=== PATIENT | female | born 1990 | race Hispanic/Latino ===

== ENCOUNTER 2019-11-13 20:39 | Emergency (ER) | payer MEDICAID ==
[2019-11-13 21:31] VITALS: BP 123/75
--- NOTE | 2019-11-13 21:53 | Emergency Department Report ---
Blank Doc - Documentation Documentation: 29-year-old female that presents with abdominal pain. This initial assessment/diagnostic orders/clinical plan/treatment(s) is/are subject to change based on patient's health status, clinical progression and re- assessment by fellow clinical providers in the ED. Further treatment and workup at subsequent clinical providers discretion. Patient/guardians urged not to elope from the ED as their condition may be serious if not clinically assessed and managed. Initial orders include: 1- Patient sent to [facility] for further evaluation and treatment 2- labs 3- UA
[2019-11-13 22:24] LABS: Basophils # (Auto) 0.1 K/mm3 (0.0-0.1); Basophils % (Auto) 1.3 % (0.0-1.8); Eosinophils # (Auto) 0.2 K/mm3 (0.0-0.4); Eosinophils % (Auto) 3.1 % (0.0-4.3); Hematocrit 39.3 % (30.3-42.9); Lymphocytes # (Auto) 2.3 K/mm3 (1.2-5.4); Lymphocytes % (Auto) 34.2 % (13.4-35.0); Mean Corpuscular HGB Conc 33 % (30-34); Mean Corpuscular Volume 93 fl (79-97); Monocytes # (Auto) 0.5 K/mm3 (0.0-0.8); Monocytes % (Auto) 7.3 % (0.0-7.3); Platelet Count 301 K/mm3 (140-440); Red Blood Count 4.21 M/mm3 (3.65-5.03); Red Cell Distribution Width 13.4 % (13.2-15.2)
[2019-11-13 22:43] LABS: Alanine Aminotransferase 23 units/L (7-56); Albumin 4.2 g/dL (3.9-5); BUN/Creatinine Ratio 15; Blood Urea Nitrogen 16 mg/dL (7-17); Calcium 9.2 mg/dL (8.4-10.2); Hemolysis Index 10
[2019-11-13 23:00] LABS: Bilirubin,Urine NEG (Negative); Blood,Urine SM (Negative); Color,Urine Yellow (Yellow); Mucus,Urine FEW /HPF; Protein,Urine <15 mg/dL mg/dL (Negative); Urobilinogen,Urine < 2.0 mg/dL (<2.0)
== END 2019-11-13 23:00 | disposition left against medical advice (07) ==
LOC: ED 20:39
DX: R30.0 Dysuria (principal); R10.9 Unspecified abdominal pain; Z53.21 Procedure and treatment not carried out due to patient leaving prior to being seen by health care provider
CPT/HCPCS: 36415; 80053; 81001; 83690; 84703; 85025

== ENCOUNTER 2020-02-14 09:51 | Emergency (ER) | payer MEDICAID ==
[2020-02-14 10:02] VITALS: BP 124/83
[2020-02-14] MEDS ORDERED: ONDANSETRON 4 MG ODT TAB PO ONE (10:27)
--- NOTE | 2020-02-14 10:43 | Emergency Department Report ---
ED Abdominal Pain HPI - General Chief Complaint: Abdominal Pain Stated Complaint: ABD PAIN Time Seen by Provider: 02/14/20 10:26 Source: patient, EMS Mode of arrival: Ambulatory Limitations: No Limitations - History of Present Illness Initial Comments: Patient is a 29-year-old female presents emergency room with complaints of generalized abdominal pain for a week. She has associated nausea. She states that she had 2 episodes of vomiting yesterday but that has since resolved. She is able to tolerate p.o. intake. She states that she also has psoriasis. She denies any diarrhea, urinary symptoms, hematochezia, hematemesis, melena. She does not report any vaginal discharge or irritation. She denies any past medical history or allergies to medications. She states her last menstrual cycle was a week ago. Severity scale (0 -10): 5 - Related Data Previous Rx's Medication Instructions Recorded Last Taken Type Cyclobenzaprine [Flexeril] 10 mg PO BID PRN #20 tablet 07/31/18 Unknown Rx Naproxen [Naprosyn] 500 mg PO BID PRN #30 tablet 07/31/18 Unknown Rx Ondansetron [Zofran Odt] 4 mg PO Q8HR PRN #10 tab.rapdis 02/14/20 Unknown Rx Triamcinolone 0.1% [Kenalog 0.1% 1 applic TP BID #1 tube 02/14/20 Unknown Rx CREAM] cephALEXin [Keflex] 500 mg PO BID 7 Days #14 cap 02/14/20 Unknown Rx Allergies Allergy/AdvReac Type Severity Reaction Status Date / Time No Known Allergies Allergy Verified 02/14/20 09:55 ED Review of Systems ROS: Stated complaint: ABD PAIN Other details as noted in HPI Comment: All other systems reviewed and negative ED Past Medical Hx - Past Medical History Additional medical history: PSORIASIS - Surgical History Additional Surgical History: ectopic , 2007 ?L/R - Social History Smoking Status: Never Smoker Substance Use Type: None - Medications Home Medications: Home Medications Medication Instructions Recorded Confirmed Last Taken Type Cyclobenzaprine [Flexeril] 10 mg PO BID PRN #20 tablet 07/31/18 Unknown Rx Naproxen [Naprosyn] 500 mg PO BID PRN #30 tablet 07/31/18 Unknown Rx Ondansetron [Zofran Odt] 4 mg PO Q8HR PRN #10 tab.rapdis 02/14/20 Unknown Rx Triamcinolone 0.1% [Kenalog 0.1% 1 applic TP BID #1 tube 02/14/20 Unknown Rx CREAM] cephALEXin [Keflex] 500 mg PO BID 7 Days #14 cap 02/14/20 Unknown Rx ED Physical Exam - General Limitations: No Limitations General appearance: alert, in no apparent distress - Head Head exam: Present: atraumatic, normocephalic - Eye Eye exam: Present: normal appearance - ENT ENT exam: Present: mucous membranes moist - Respiratory Respiratory exam: Present: normal lung sounds bilaterally. Absent: respiratory distress, wheezes, rales, rhonchi, stridor, chest wall tenderness, accessory muscle use, decreased breath sounds, prolonged expiratory - Cardiovascular Cardiovascular Exam: Present: regular rate, normal rhythm, normal heart sounds. Absent: systolic murmur, diastolic murmur, rubs, gallop - GI/Abdominal GI/Abdominal exam: Present: soft, normal bowel sounds. Absent: distended, tenderness, guarding, rebound, rigid - Neurological Exam Neurological exam: Present: alert, oriented X3 - Psychiatric Psychiatric exam: Present: normal affect, normal mood - Skin Skin exam: Present: warm, dry, other (psoriatic plaques present on the flexor surfaces, no signs of infection, no skin denuding, no necrosis, no blistering) ED Course Vital Signs 02/14/20 10:00 Temperature 98 F Pulse Rate 70 Respiratory 18 Rate Blood Pressure 124/83 [Right] O2 Sat by Pulse 98 Oximetry ED Medical Decision Making - Lab Data Result diagrams: 02/14/20 10:30 02/14/20 10:30 Lab Results 02/14/20 02/14/20 02/14/20 Range/Units 10:30 10:30 10:53 WBC 4.8 (4.5-11.0) K/mm3 RBC 4.82 (3.65-5.03) M/mm3 Hgb 15.0 H (10.1-14.3) gm/dl Hct 44.2 H (30.3-42.9) % MCV 92 (79-97) fl MCH 31 (28-32) pg MCHC 34 (30-34) % RDW 12.6 L (13.2-15.2) % Plt Count 247 (140-440) K/mm3 Lymph % (Auto) 28.2 (13.4-35.0) % Rains % (Auto) 9.5 H (0.0-7.3) % Eos % (Auto) 5.1 H (0.0-4.3) % Baso % (Auto) 1.1 (0.0-1.8) % Lymph # 1.4 (1.2-5.4) K/mm3 Rains # 0.5 (0.0-0.8) K/mm3 Eos # 0.2 (0.0-0.4) K/mm3 Baso # 0.1 (0.0-0.1) K/mm3 Seg Neutrophils % 56.1 (40.0-70.0) % Seg Neutrophils # 2.7 (1.8-7.7) K/mm3 Sodium 141 (137-145) mmol/L Potassium 3.7 (3.6-5.0) mmol/L Chloride 100.4 (98-107) mmol/L Carbon Dioxide 31 H (22-30) mmol/L Anion Gap 13 mmol/L BUN 7 (7-17) mg/dL Creatinine 0.7 (0.7-1.2) mg/dL Estimated GFR > 60 ml/min BUN/Creatinine Ratio 10 % Glucose 90 (65-100) mg/dL Calcium 9.1 (8.4-10.2) mg/dL Total Bilirubin 0.20 (0.1-1.2) mg/dL AST 19 (5-40) units/L ALT 15 (7-56) units/L Alkaline Phosphatase 125 (35-129) units/L Total Protein 6.6 (6.3-8.2) g/dL Albumin 4.2 (3.9-5) g/dL Albumin/Globulin Ratio 1.8 % Lipase 17 (13-60) units/L Urine Color Yellow (Yellow) Urine Turbidity Clear (Clear) Urine pH 7.0 (5.0-7.0) Ur Specific [place] 1.006 (1.003-1.030) Urine Protein <15 mg/dl (Negative) mg/dL Urine Glucose (UA) Neg (Negative) mg/dL Urine Ketones Neg (Negative) mg/dL Urine Blood Neg (Negative) Urine Nitrite Neg (Negative) Ur Reducing Substances Not Reportable Urine Bilirubin Neg (Negative) Urine Ictotest Not Reportable Urine Urobilinogen < 2.0 (<2.0) mg/dL Ur Leukocyte Esterase Sm (Negative) Urine WBC (Auto) 12.0 H (0.0-6.0) /HPF Urine RBC (Auto) 1.0 (0.0-6.0) /HPF U Epithel Cells (Auto) 5.0 (0-13.0) /HPF Urine Mucus Few /HPF Urine HCG, Qual Negative (Negative) - Medical Decision Making Patient is a 29-year-old female presents emergency room with complaints of generalized abdominal pain for a week. She has associated nausea. She states that she had 2 episodes of vomiting yesterday but that has since resolved. She is able to tolerate p.o. intake. She states that she also has psoriasis. She denies any diarrhea, urinary symptoms, hematochezia, hematemesis, melena. She does not report any vaginal discharge or irritation. She denies any past medical history or allergies to medications. She states her last menstrual cycle was a week ago. vitals are normal. on exam: no abd ttp, no guarding, no rebound, no rigidity, normal bowel sounds, no peritoneal signs. labs are stable. UA shows signs of UTI with WBCs and leukocyte esterase. pt given ODT zofran and was able to tolerate PO intake without difficulty. pt was sleeping comfortably in exam room. discussed all results with pt. pt given prescription for zofran and keflex. pt also given prescription for triamcinolone for her psoriasis. advised pt please take medication as prescribed. increase your fluid intake. eat a bland diet and advance your diet as tolerated. avoid anything greasy or sugary. follow up with a primary care doctor for reexamination. return to the emergency room for any new or worsening symptoms. - Differential Diagnosis uti, gastroenteritis, gastritis, PUD, GERD, pancreatitis, cholecystitis Critical care attestation.: If time is entered above; I have spent that time in minutes in the direct care of this critically ill patient, excluding procedure time. ED Disposition Clinical Impression: Psoriasis Abdominal pain Qualifiers: Abdominal location: generalized Qualified Code(s): R10.84 - Generalized abdominal pain Nausea & vomiting Qualifiers: Vomiting type: unspecified Vomiting Intractability: non-intractable Qualified Code(s): R11.2 - Nausea with vomiting, unspecified UTI (urinary tract infection) Qualifiers: Urinary tract infection type: acute cystitis Hematuria presence: without hematuria Qualified Code(s): N30.00 - Acute cystitis without hematuria Disposition: TO HOME OR SELFCARE Is pt being admited?: No Does the pt Need Aspirin: No Condition: Stable Instructions: Urinary Tract Infection in Women (ED), Psoriasis (ED), Acute Nausea and Vomiting (ED) Additional Instructions: please take medication as prescribed. increase your fluid intake. eat a bland diet and advance your diet as tolerated. avoid anything greasy or sugary. follow up with a primary care doctor for reexamination. return to the emergency room for any new or worsening symptoms. Prescriptions: cephALEXin [Keflex] 500 mg PO BID 7 Days #14 cap Triamcinolone 0.1% [Kenalog 0.1% CREAM] 1 applic TP BID #1 tube Ondansetron [Zofran Odt] 4 mg PO Q8HR PRN #10 tab.rapdis PRN Reason: Nausea And Vomiting Referrals: DEMETRIUS URBANO MD [Staff Physician] - 2-3 Days [facility] [Provider Group] - 2-3 Days [facility] [Outside] - 2-3 Days Time of Disposition: 11:20 Print Language: MARTINIQUAIS
[2020-02-14 10:51] LABS: Basophils # (Auto) 0.1 K/mm3 (0.0-0.1); Basophils % (Auto) 1.1 % (0.0-1.8); Eosinophils # (Auto) 0.2 K/mm3 (0.0-0.4); Eosinophils % (Auto) 5.1 % (0.0-4.3); Hematocrit 44.2 % (30.3-42.9); Lymphocytes # (Auto) 1.4 K/mm3 (1.2-5.4); Lymphocytes % (Auto) 28.2 % (13.4-35.0); Mean Corpuscular HGB Conc 34 % (30-34); Mean Corpuscular Volume 92 fl (79-97); Monocytes # (Auto) 0.5 K/mm3 (0.0-0.8); Monocytes % (Auto) 9.5 % (0.0-7.3); Platelet Count 247 K/mm3 (140-440); Red Blood Count 4.82 M/mm3 (3.65-5.03); Red Cell Distribution Width 12.6 % (13.2-15.2)
[2020-02-14 11:02] LABS: HCG Qualitative,Urine Negative (Negative)
[2020-02-14 11:05] LABS: Bilirubin,Urine NEG (Negative); Blood,Urine NEG (Negative); Color,Urine Yellow (Yellow); Mucus,Urine FEW /HPF; Protein,Urine <15 mg/dL mg/dL (Negative); Urobilinogen,Urine < 2.0 mg/dL (<2.0)
[2020-02-14 11:10] LABS: Alanine Aminotransferase 15 units/L (7-56); Albumin 4.2 g/dL (3.9-5); BUN/Creatinine Ratio 10; Blood Urea Nitrogen 7 mg/dL (7-17); Calcium 9.1 mg/dL (8.4-10.2); Hemolysis Index 3
== END 2020-02-14 11:42 | disposition home or self-care (01) ==
LOC: ED 09:51
DX: N39.0 Urinary tract infection, site not specified (principal); L40.8 Other psoriasis; Z79.899 Other long term (current) drug therapy
CPT/HCPCS: 36415; 80053; 81001; 81025; 83690; 85025; 87086; Q0162

== ENCOUNTER 2021-06-27 14:19 | Emergency (ER) | payer MEDICAID ==
[2021-06-27] MEDS ORDERED: ONDANSETRON 4 MG/2 ML INJ IV ONE (14:53)
[2021-06-27] MEDS ORDERED: SODIUM CHLORIDE 0.9% 1000 ML 1,000 ML IV ONE (14:53)
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
[2021-06-27 15:09] LABS: Hematocrit 40.4 % (30.3-42.9)
[2021-06-27 15:17] VITALS: BP 122/80
[2021-06-27 15:32] LABS: Hemoglobin 13.3 gm/dl (10.1-14.3); Mean Corpuscular HGB Conc 33 % (30-34); Mean Corpuscular Volume 93 fl (79-97); Platelet Count 174 K/mm3 (140-440); Red Blood Count 4.37 M/mm3 (3.65-5.03); Red Cell Distribution Width 13.2 % (13.2-15.2)
[2021-06-27 15:33] LABS: Alanine Aminotransferase 18 units/L (7-56); Albumin 3.9 g/dL (3.9-5); BUN/Creatinine Ratio 18; Blood Urea Nitrogen 14 mg/dL (7-17); Calcium 8.8 mg/dL (8.4-10.2); Hemolysis Index 17
[2021-06-27 15:36] LABS: Bilirubin,Direct < 0.2 mg/dL (0-0.2)
[2021-06-27 17:16] LABS: Total Cells Counted 100
[2021-06-27 17:17] LABS: Band Neutrophils # (Manual) 5.4 K/mm3; Large Platelets Rare; Platelet Estimate Cons; RBC Morphology Normal
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
--- NOTE | 2021-06-27 17:37 | Cat Scan Report ---
CT ABDOMEN AND PELVIS WITH CONTRAST INDICATION: Generalized abdominal pain. TECHNIQUE: Axial CT images were obtained through the abdomen and pelvis after 100 cc IV contrast. All CT scans at this location are performed using CT dose reduction for ALARA by means of automated exposure contr ol. COMPARISON: None available. FINDINGS: LOWER CHEST: No significant abnormality. LIVER: No significant abnormality. GALLBLADDER: No significant abnormality. BILE DUCTS: No significant abnormality. PANCREAS: No significant abnormality. SPLEEN: No significant abnormality. ADRENALS: No significant abnormality. RIGHT KIDNEY and URETER: No significant abnormality. LEFT KIDNEY and URETER: No significant abnormality. STOMACH and SMALL BOWEL: Fluid-filled nondilated loops of small bowel with moderate mucosal enhanceme nt likely secondary to gastroenteritis. COLON: Fluid-filled colon. APPENDIX: No significant abnormality. PERITONEUM: No free fluid. No free air. No fluid collection. LYMPH NODES: No significant adenopathy. AORTA and ARTERIES: No significant abnormality. IVC and VEINS: No significant abnormality. URINARY BLADDER: No significant abnormality. REPRODUCTIVE ORGANS: No significant abnormality. ADDITIONAL FINDINGS: None. SKELETAL SYSTEM: No significant abnormality. IMPRESSION: 1. Fluid-filled nondilated loops of large and small bowel with enhancing small bowel mucosa likely se condary to gastroenteritis. Signer Name: Mingo Navarro MD Signed: 06/27/2021 5:33 PM Workstation Name: [id number]
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
[2021-06-27] MEDS ORDERED: MORPHINE 4 MG/1 ML INJ IV ONE (18:00)
[2021-06-27 18:38] LABS: Bilirubin,Urine NEG (Negative); Blood,Urine NEG (Negative); Color,Urine Yellow (Yellow); Mucus,Urine FEW /HPF; Protein,Urine <15 mg/dL mg/dL (Negative); Urobilinogen,Urine < 2.0 mg/dL (<2.0)
== END 2021-06-27 18:23 | disposition left against medical advice (07) ==
LOC: ED 14:19
DX: S02.92XA Unspecified fracture of facial bones, initial encounter for closed fracture (principal); R10.84 Generalized abdominal pain; D72.829 Elevated white blood cell count, unspecified; H72.91 Unspecified perforation of tympanic membrane, right ear; H66.91 Otitis media, unspecified, right ear; R94.6 Abnormal results of thyroid function studies; Z98.890 Other specified postprocedural states; Y04.8XXA Assault by other bodily force, initial encounter; Y93.89 Activity, other specified; Y92.89 Other specified places as the place of occurrence of the external cause; Y99.8 Other external cause status
CPT/HCPCS: 36415; 70450; 70486; 74177; 80048; 80076; 81001; 83690; 84443; 84703; 85007; 85025; 87086; 96361; 96374; 99284; J2405; J7030; Q9967; 80320; G0480

== ENCOUNTER 2021-07-04 13:51 | Emergency (ER) | payer SELFPAY ==
[2021-07-04 13:59] VITALS: BP 133/85
--- NOTE | 2021-07-04 15:23 | Emergency Department Report ---
ED Female HPI - General Chief complaint: Urogenital-Female Stated complaint: ABD PAIN Time Seen by Provider: 07/04/21 14:30 Source: patient Mode of arrival: Ambulatory Limitations: No Limitations - History of Present Illness Initial comments: This is a 31-year-old female nontoxic, well nourished in appearance, no acute signs of distress presents to the ED with c/o of vaginal discharge and pelvic pain x several days. Patient was seen in the year several days ago and had imaging studies within normal limits. Patient denies vaginal pain or swelling. Patient denies any vaginal ulcers or lesions. Patient denies any nausea, vomiting, chest pain, shortness of breathe, fever, chills, headache, back pain, numbness, tingling, stiff neck. Patient denies any urinary symptoms. Denies any upper or lower abdominal pains. Patient denies any allergies. Patient stated that her boyfriend just been DX and treated for STDs today. MD Complaint: vaginal discharge, pelvic pain, possible STD -: days(s) Radiation: non-radiating Severity: mild Severity scale (0 -10): 8 Consistency: constant Improves with: none Worsens with: none Are you Now?: No Associated Symptoms: vaginal discharge, other (pelvic pain). denies: vaginal bleeding, abdominal pain, nausea/vomiting, fever/chills, headaches, loss of appetite, dysuria, hematuria, rash, seizure, shortness of breath, syncope, weakness - Related Data Sexually active: Yes Previous Rx's Medication Instructions Recorded Last Taken Type Cyclobenzaprine [Flexeril] 10 mg PO BID PRN #20 tablet 07/31/18 Unknown Rx Naproxen [Naprosyn] 500 mg PO BID PRN #30 tablet 07/31/18 Unknown Rx Ondansetron [Zofran Odt] 4 mg PO Q8HR PRN #10 tab.rapdis 02/14/20 Unknown Rx Triamcinolone 0.1% [Kenalog 0.1% 1 applic TP BID #1 tube 02/14/20 Unknown Rx CREAM] cephALEXin [Keflex] 500 mg PO BID 7 Days #14 cap 02/14/20 Unknown Rx Clindamycin [Clindamycin CAP] 300 mg PO Q8H #21 cap 06/27/21 Unknown Rx Doxycycline Hyclate 100 mg PO Q12H #14 capsule 07/04/21 Unknown Rx metroNIDAZOLE [Flagyl] 500 mg PO Q12HR #14 tab 07/04/21 Unknown Rx Allergies Allergy/AdvReac Type Severity Reaction Status Date / Time No Known Allergies Allergy Verified 07/04/21 13:52 ED Review of Systems ROS: Stated complaint: ABD PAIN Other details as noted in HPI Comment: All other systems reviewed and negative Constitutional: denies: chills, fever Eyes: denies: eye pain, eye discharge, vision change ENT: denies: ear pain, throat pain Respiratory: denies: cough, shortness of breath, wheezing Cardiovascular: denies: chest pain, palpitations Endocrine: no symptoms reported Gastrointestinal: denies: abdominal pain, nausea, vomiting, diarrhea, constipation, hematemesis, melena, hematochezia Genitourinary: discharge, other (pelvic pain). denies: urgency, dysuria, frequency, hematuria, abnormal menses, dyspareunia Musculoskeletal: denies: back pain, joint swelling, arthralgia Skin: denies: rash, lesions Neurological: denies: headache, weakness, paresthesias Psychiatric: denies: anxiety, depression Hematological/Lymphatic: denies: easy bleeding, easy bruising ED Past Medical Hx - Past Medical History Additional medical history: PSORIASIS/ FACIAL FX - Surgical History Additional Surgical History: ectopic , 2007 ?L/R - Social History Smoking Status: Never Smoker Substance Use Type: None - Medications Home Medications: Home Medications Medication Instructions Recorded Confirmed Last Taken Type Cyclobenzaprine [Flexeril] 10 mg PO BID PRN #20 tablet 07/31/18 Unknown Rx Naproxen [Naprosyn] 500 mg PO BID PRN #30 tablet 07/31/18 Unknown Rx Ondansetron [Zofran Odt] 4 mg PO Q8HR PRN #10 tab.rapdis 02/14/20 Unknown Rx Triamcinolone 0.1% [Kenalog 0.1% 1 applic TP BID #1 tube 02/14/20 Unknown Rx CREAM] cephALEXin [Keflex] 500 mg PO BID 7 Days #14 cap 02/14/20 Unknown Rx Clindamycin [Clindamycin CAP] 300 mg PO Q8H #21 cap 06/27/21 Unknown Rx Doxycycline Hyclate 100 mg PO Q12H #14 capsule 07/04/21 Unknown Rx metroNIDAZOLE [Flagyl] 500 mg PO Q12HR #14 tab 07/04/21 Unknown Rx ED Physical Exam - General Limitations: No Limitations General appearance: alert, in no apparent distress - Head Head exam: Present: atraumatic, normocephalic - Eye Eye exam: Present: normal appearance - Neck Neck exam: Present: normal inspection, full ROM. Absent: lymphadenopathy - Respiratory Respiratory exam: Present: normal lung sounds bilaterally. Absent: respiratory distress, wheezes, rales, rhonchi, stridor, chest wall tenderness, accessory muscle use, decreased breath sounds, prolonged expiratory - Cardiovascular Cardiovascular Exam: Present: regular rate, normal rhythm, normal heart sounds. Absent: bradycardia, tachycardia, irregular rhythm, systolic murmur, diastolic murmur, rubs, gallop - GI/Abdominal GI/Abdominal exam: Present: soft, normal bowel sounds. Absent: distended, tenderness, guarding, rebound, rigid, diminished bowel sounds - External exam: Present: normal external exam, other ([employer]ist Maria Luz RN present during exam). Absent: erythema, swelling, lesions, lacerations, ecchymosis, bleeding Speculum exam: Present: cervical discharge, other ([employer] Specialist Maria Luz RN present during exam). Absent: erythema, vaginal discharge, vaginal bleeding, foreign body, tissue, laceration Bi-manual exam: Present: cervical motion tendernes, other ([employer] Specialist Maria Luz RN present during exam). Absent: adnexal tenderness, adnexal mass, uterine enlargement, uterine tenderness - Extremities Exam Extremities exam: Present: normal inspection, full ROM - Back Exam Back exam: Present: normal inspection, full ROM. Absent: tenderness, CVA tenderness (R), CVA tenderness (L), muscle spasm, paraspinal tenderness, vertebral tenderness, rash noted - Neurological Exam Neurological exam: Present: alert, oriented X3, normal gait - Psychiatric Psychiatric exam: Present: normal affect, normal mood - Skin Skin exam: Present: warm, dry, intact, normal color. Absent: rash ED Course Vital Signs 07/04/21 07/04/21 13:56 13:58 Temperature 97.9 F Pulse Rate 92 H Respiratory 20 Rate Blood Pressure 133/85 O2 Sat by Pulse 100 Oximetry - Reevaluation(s) Reevaluation #1: 07/04/21 15:23 Patient is speaking in full sentences with no signs of distress noted. ED Medical Decision Making - Lab Data Lab Results 07/04/21 Range/Units 16:30 Urine Color Yellow (Yellow) Urine Turbidity Slightly-cloudy (Clear) Urine pH 6.0 (5.0-7.0) Ur Specific [place] 1.017 (1.003-1.030) Urine Protein <15 mg/dl (Negative) mg/dL Urine Glucose (UA) Neg (Negative) mg/dL Urine Ketones Neg (Negative) mg/dL Urine Blood Neg (Negative) Urine Nitrite Neg (Negative) Urine Bilirubin Neg (Negative) Urine Urobilinogen < 2.0 (<2.0) mg/dL Ur Leukocyte Esterase Neg (Negative) Urine WBC (Auto) 7.0 H (0.0-6.0) /HPF Urine RBC (Auto) 10.0 (0.0-6.0) /HPF U Epithel Cells (Auto) 2.0 (0-13.0) /HPF Urine Bacteria (Auto) 1+ (Negative) /HPF Urine Mucus 1+ /HPF Urine Trichomonas Present /HPF Urine HCG, Qual Negative (Negative) - Medical Decision Making this is a 31-year-old female that presents with cervical motion tenderness, possible STD and trichomonas. Patient is stable was examined by me. There is no abdominal tenderness. No pelvic pain. UA obtained. Wet prep obtained. Gonorrhea chlamydia swab pending. Patient was instructed to return in 3-5 days for GC results. Patient wanted empirical treatment so patient received 2050 mg Rocephin. Patient also will be discharged with Flagyl and doxycycline. Patient was instructed to Follow-up with a primary care doctor in 3-5 days or if symptoms worsen and continue return to emergency room as soon as possible. At time of discharge, the patient does not seem toxic or ill in appearance. No acute signs of distress noted. Patient agrees to discharge treatment plan of care. No further questions noted by the patient. Critical care attestation.: If time is entered above; I have spent that time in minutes in the direct care of this critically ill patient, excluding procedure time. ED Disposition Clinical Impression: Possible exposure to STD, Cervical motion tenderness, Trichomonas vaginitis Disposition: HOME / SELF CARE / HOMELESS Is pt being admited?: No Does the pt Need Aspirin: No Condition: Stable Instructions: Safe Sex, Metronidazole tablets or capsules Additional Instructions: Follow-up with a primary care doctor in 3-5 days or if symptoms worsen and continue return to emergency room as soon as possible. Prescriptions: Doxycycline Hyclate 100 mg PO Q12H #14 capsule metroNIDAZOLE [Flagyl] 500 mg PO Q12HR #14 tab Referrals: PRIMARY CAREMD [Primary Care Provider] - 3-5 Days DEMETRIUS URBANO MD [Staff Physician] - 3-5 Days Time of Disposition: 17:43
[2021-07-04 16:51] LABS: Bacteria,Urine 1+ /HPF (Negative); Bilirubin,Urine NEG (Negative); Blood,Urine NEG (Negative); Color,Urine Yellow (Yellow); Mucus,Urine 1+ /HPF; Protein,Urine <15 mg/dL mg/dL (Negative); Urobilinogen,Urine < 2.0 mg/dL (<2.0)
[2021-07-04] MEDS ORDERED: LIDOCAINE-MPF (1%) 10 MG/1 ML VIAL 5 ML INFILTRATI ONE (16:52)
[2021-07-04 16:54] LABS: HCG Qualitative,Urine Negative (Negative); Trichomonas,Urine Present /HPF
== END 2021-07-04 19:45 | disposition home or self-care (01) ==
LOC: ED 13:51
DX: A59.01 Trichomonal vulvovaginitis (principal); Z20.2 Contact with and (suspected) exposure to infections with a predominantly sexual mode of transmission; N89.8 Other specified noninflammatory disorders of vagina; Z79.899 Other long term (current) drug therapy
CPT/HCPCS: 81001; 81025; 87210; 87591; 96372; 99284; J0696

== ENCOUNTER 2021-07-12 06:57 | Emergency (ER) | payer SELFPAY ==
--- NOTE | 2021-07-12 07:43 | Event Note ---
ED Screening Note Date of service: 07/12/21 ED Screening Note: 3 ER visits recently see EMR she comes in today because the facial swelling from her facial fracture is down and she wants reevaluated- she had work up and went AMA -. She had ruptured TM and facial fx. She says she never got follow up info. Further review of the EMR indicates that the patient signed out AMA during her second to last visit which was for her facial fracture. She was given a discharge packet with appropriate referrals. I've printed packet and gone over the referrals with her. She became beligerent and argumentative stating "how will I get there." She is disheveled on exam, has a bag and appears homeless. She has quick trip cup and is drinking with no difficulty EOMs intact. PERRL. no fluid from ears or nose. alert and oriented, she is ambulatory. S1-S2 Lungs clear Abdomen soft nontender RN then called me to assist with discharge. We again went over her d/c packet, explaining follow up and management of her concerns. She does not seem to understand the role of ER in emergencies and thinks a hospital ER can fix every thing. RN did ask planed to her that her injury is now several weeks old and that she needs specialist follow-up. Not only did we give her a copy of the prior discharge summary but discharge instructions from today. Patient was registered. She is being MSE with appropriate specialty follow-up. She has no life threatening injury or illness. Vital signs are stable. No chest pain no shortness of breath. Neurologically intact. This initial assessment/diagnostic orders/clinical plan/treatment(s) is/are subject to change based on patients health status, clinical progression and re-assessment by fellow clinical providers in the ED. Further treatment and workup at subsequent clinical providers discretion. Patient/guardian urged not to elope from the ED as their condition may be serious if not clinically assessed and managed. Initial orders include: Patient MSE from the emergency room due to lack of emergent condition requiring ER visit. Vital Signs 07/12/21 07/12/21 07:05 08:12 Temperature 97.9 F Pulse Rate 83 72 Respiratory 18 16 Rate Blood Pressure 127/87 Blood Pressure 126/93 [Left] O2 Sat by Pulse 99 96 Oximetry
[2021-07-12 08:18] VITALS: BP 126/93
== END 2021-07-12 08:12 | disposition home or self-care (01) ==
LOC: ED 06:57
DX: R51.9 Headache, unspecified (principal); Z53.21 Procedure and treatment not carried out due to patient leaving prior to being seen by health care provider

== ENCOUNTER 2021-09-13 19:01 | Emergency (ER) | payer SELFPAY | END 2021-09-13 20:58 | disposition left against medical advice (07) | LOC: ED 19:01 | DX: O46.90 Antepartum hemorrhage, unspecified, unspecified trimester (principal); Z53.21 Procedure and treatment not carried out due to patient leaving prior to being seen by health care provider ==

== ENCOUNTER 2021-10-28 22:24 | Emergency (ER) | payer SELFPAY ==
--- NOTE | 2021-10-29 02:20 | Emergency Department Report ---
ED General Adult HPI - General Chief complaint: Skin/Abscess/Foreign Body Stated complaint: I cannot get my tongue piercing out Time Seen by Provider: 10/29/21 02:19 Source: patient, RN notes reviewed, old records reviewed Mode of arrival: Ambulatory Limitations: No Limitations - History of Present Illness Initial comments: The patient was evaluated in the emergency department for symptoms described in the history of present illness. He/she was evaluated in the context of the global COVID-19 pandemic, which necessitated consideration that the patient might be at risk for infection with the virus that causes COVID-19. Institutional protocols and algorithms that pertain to the evaluation of patients at risk for COVID-19 are in a state of rapid change based on information released by regulatory bodies including the CDC and federal and state organizations. These policies and algorithms were followed during the patient's care in the emergency department. Please note that these policies, procedures and recommendations changed on a rapid basis. Patient is a 31-year-old female who presents to the ER today with a complaint of tongue piercing difficulty. She reports having had a tongue piercing placed about a decade ago, and she is trying to get the piercing out. She was able to take out the ball portion of the piercing, but the remainder of the tongue ring is still embedded on the distal tip of her tongue. She has minimal pain around this area. She has no significant swelling. She has no fevers that she is aware of, but she reports that she may have felt a little bit warm. No stridor, no abdominal pain, no nausea, vomiting or diarrhea. Consumes tobacco and marijuana. Is not COVID-19 vaccinated. She is not sure if she is . She is not sure if she is having dysuria. She is requesting a test. -: Gradual Location: mouth Severity scale (0 -10): 3 Consistency: constant Improves with: none Worsens with: none Associated Symptoms: denies other symptoms - Related Data Previous Rx's Medication Instructions Recorded Last Taken Type Cyclobenzaprine [Flexeril] 10 mg PO BID PRN #20 tablet 07/31/18 Unknown Rx Naproxen [Naprosyn] 500 mg PO BID PRN #30 tablet 07/31/18 Unknown Rx Ondansetron [Zofran Odt] 4 mg PO Q8HR PRN #10 tab.rapdis 06/12/20 Unknown Rx Triamcinolone 0.1% [Kenalog 0.1% 1 applic TP BID #1 tube 02/14/20 Unknown Rx CREAM] cephALEXin [Keflex] 500 mg PO BID 7 Days #14 cap 02/14/20 Unknown Rx Clindamycin [Clindamycin CAP] 300 mg PO Q8H #21 cap 06/27/21 Unknown Rx Doxycycline Hyclate 100 mg PO Q12H #14 capsule 07/04/21 Unknown Rx metroNIDAZOLE [Flagyl] 500 mg PO Q12HR #14 tab 07/04/21 Unknown Rx Allergies Allergy/AdvReac Type Severity Reaction Status Date / Time No Known Allergies Allergy Verified 07/04/21 13:52 ED Review of Systems ROS: Stated complaint: TONGUE INJURY Other details as noted in HPI Constitutional: see HPI. denies: fever ENT: other (Tongue pain). denies: ear pain, throat pain, dental pain Respiratory: denies: cough Cardiovascular: denies: chest pain Gastrointestinal: denies: abdominal pain Genitourinary: as per HPI Hematological/Lymphatic: denies: easy bleeding ED Past Medical Hx - Past Medical History Previous Medical History?: Yes Additional medical history: PSORIASIS/ FACIAL FX - Surgical History Past Surgical History?: Yes Additional Surgical History: ectopic , 2008 ?L/R - Social History Smoking Status: Never Smoker Substance Use Type: None - Medications Home Medications: Home Medications Medication Instructions Recorded Confirmed Last Taken Type Cyclobenzaprine [Flexeril] 10 mg PO BID PRN #20 tablet 07/31/18 Unknown Rx Naproxen [Naprosyn] 500 mg PO BID PRN #30 tablet 07/31/18 Unknown Rx Ondansetron [Zofran Odt] 4 mg PO Q8HR PRN #10 tab.rapdis 02/14/20 Unknown Rx Triamcinolone 0.1% [Kenalog 0.1% 1 applic TP BID #1 tube 02/14/20 Unknown Rx CREAM] cephALEXin [Keflex] 500 mg PO BID 7 Days #14 cap 02/14/20 Unknown Rx Clindamycin [Clindamycin CAP] 300 mg PO Q8H #21 cap 06/27/21 Unknown Rx Doxycycline Hyclate 100 mg PO Q12H #14 capsule 07/04/21 Unknown Rx metroNIDAZOLE [Flagyl] 500 mg PO Q12HR #14 tab 07/04/21 Unknown Rx ED Physical Exam - General Limitations: No Limitations General appearance: alert, in no apparent distress - Head Head exam: Present: atraumatic, normocephalic - Eye Eye exam: Present: normal appearance, EOMI. Absent: nystagmus - ENT ENT exam: Present: normal exam, normal orophraynx, mucous membranes moist, normal external ear exam, other (Patient noted to have tongue piercing at the distal tip of the tongue. There is no redness, pus or streaking around the piercing. The tongue is nontender. The patient is not stridulous. Uvula is midline. Phonating in complete sentences. Neck is supple.) - Neck Neck exam: Present: normal inspection, full ROM. Absent: tenderness, meningismus - Respiratory Respiratory exam: Present: normal lung sounds bilaterally. Absent: respiratory distress, wheezes, rales, rhonchi, stridor, decreased breath sounds - Cardiovascular Cardiovascular Exam: Present: regular rate, normal rhythm, normal heart sounds. Absent: bradycardia, tachycardia, irregular rhythm, systolic murmur, diastolic murmur, rubs, gallop - GI/Abdominal GI/Abdominal exam: Present: soft. Absent: distended, tenderness, guarding, rebound, rigid, pulsatile mass - Extremities Exam Extremities exam: Present: normal inspection, full ROM, other (2+ pulses noted in the bilateral upper and lower extremities. There is no palpable cord. negative Homans sign. Muscular compartments are soft. The pelvis is stable.). Absent: pedal edema, calf tenderness - Back Exam Back exam: Present: normal inspection. Absent: tenderness, CVA tenderness (R), CVA tenderness (L), paraspinal tenderness, vertebral tenderness - Neurological Exam Neurological exam: Present: alert, oriented X3, normal gait, other (No facial droop. Tongue midline. Extraocular movements intact bilaterally. Facial sensation intact to light touch in V1, V2, V3 distribution bilaterally. 5 and a 5 strength in 4 extremities. Sensation intact to light touch in 4 extremities.). Absent: motor sensory deficit - Psychiatric Psychiatric exam: Present: normal affect, normal mood - Skin Skin exam: Present: warm, dry, intact, normal color. Absent: rash ED Course Vital Signs 10/29/21 01:54 Temperature 98.6 F Pulse Rate 81 Respiratory 17 Rate Blood Pressure 115/64 [Right] O2 Sat by Pulse 99 Oximetry - Reevaluation(s) Reevaluation #1: 10/29/21 02:45 Differential diagnosis, including but not limited to: Chronic tongue foreign body/tongue piercing, test negative, encounter for tobacco/marijuana cessation Assessment and plan: 31-year-old female with primary complaint of pain at the tongue piercing. She is afebrile, and her physical exam is unremarkable. Her tongue exam is not consistent with infectious pathology. Patient counseled that she may follow-up with an oral surgeon, dentist, or ENT physicians for elective tongue piercing removal. She is not . Counseled to discontinue tobacco, marijuana consumption. Counseled to complete COVID-19 vaccination series. She does not appear to have an emergent medical condition present at this time. Return precautions reviewed ED Medical Decision Making - Lab Data Vital Signs 10/29/21 01:54 Temperature 98.6 F Pulse Rate 81 Respiratory 17 Rate Blood Pressure 115/64 [Right] O2 Sat by Pulse 99 Oximetry Lab Results 10/29/21 Range/Units 02:25 Urine WBC (Auto) 1.0 (0.0-6.0) /HPF Urine RBC (Auto) 1.0 (0.0-6.0) /HPF U Epithel Cells (Auto) 9.0 (0-13.0) /HPF Urine Mucus Few /HPF Urine HCG, Qual Negative (Negative) Lab Results 10/29/21 Range/Units 02:25 Urine Color Colorless (Yellow) Urine Turbidity Clear (Clear) Urine pH 5.0 (5.0-7.0) Ur Specific [place] 1.010 (1.003-1.030) Urine Protein <15 mg/dl (Negative) mg/dL Urine Glucose (UA) Negative (Negative) mg/dL Urine Ketones Negative (Negative) mg/dL Urine Blood Negative (Negative) Urine Nitrite Negative (Negative) Ur Reducing Substances Not Reportable Urine Bilirubin Negative (Negative) Urine Ictotest Not Reportable Urine Urobilinogen < 2.0 (<2.0) mg/dL Ur Leukocyte Esterase <2.0 (Negative) Urine WBC (Auto) 1.0 (0.0-6.0) /HPF Urine RBC (Auto) 1.0 (0.0-6.0) /HPF U Epithel Cells (Auto) 9.0 (0-13.0) /HPF Urine Mucus Few /HPF Urine HCG, Qual Negative (Negative) Critical care attestation.: If time is entered above; I have spent that time in minutes in the direct care of this critically ill patient, excluding procedure time. ED Disposition Clinical Impression: History of tobacco use, History of marijuana use, COVID-19 vaccination not done, test negative, Tongue pain Disposition: HOME / SELF CARE / HOMELESS Is pt being admited?: No Does the pt Need Aspirin: No Condition: Good Additional Instructions: Patient may follow-up with a dentist, oral surgeon, or ENT physician to have tongue ring electively removed. Patient may follow-up with oral surgery at [place] or at [place]: [facility] [address] [place] [address] [address] Floor[address] Monday: 11 AM - 4:30 PM Monday: 8 AM - 4:30 PM Every other : 8 AM - 4:30 PM Every other Monday: 8 AM - 4:30 PM (Main) (Appointments) Dr Vick is a local ENT physician [facility] is a local dental clinic. Recommend that patient discontinue tobacco, marijuana consumption. Recommend that patient complete COVID-19 vaccination series. Urine test showed a negative test. Recommend follow-up within the next 3 to 4 weeks. Patient may take [id number] Tylenol or ibuprofen as needed for physical pain. Patient may purchase these [id number]. Please return to the emergency room right away with new pain, worsened pain, migration of pain, projectile vomiting, change in mental status, confusion, inability tolerate liquid feeds, new, worsened or different symptoms not present on the initial emergency room evaluation Referrals: DAMIEN VICK MD [Staff Physician] - [facility] Days [facility] - [facility]5 Days
[2021-10-29 02:41] LABS: HCG Qualitative,Urine Negative (Negative); Mucus,Urine FEW /HPF
[2021-10-29 02:45] LABS: Color,Urine Colorless (Yellow)
[2021-10-29 02:46] LABS: Bilirubin,Urine Negative (Negative); Blood,Urine Negative (Negative); Protein,Urine <15 mg/dL mg/dL (Negative); Urobilinogen,Urine < 2.0 mg/dL (<2.0)
[2021-10-29] MEDS ORDERED: IBUPROFEN ORAL LIQD 100 MG/5 ML ORAL.LIQD PO ONE (02:48)
[2021-10-29 03:36] VITALS: BP 119/68
== END 2021-10-29 04:10 | disposition home or self-care (01) ==
LOC: ED 22:24
DX: K14.6 Glossodynia (principal); F12.90 Cannabis use, unspecified, uncomplicated; Z32.02 Encounter for pregnancy test, result negative; F17.200 Nicotine dependence, unspecified, uncomplicated; Z79.899 Other long term (current) drug therapy
CPT/HCPCS: 81001; 81025; 99283

== ENCOUNTER 2022-05-12 12:43 | Emergency (ER) | payer MEDICAID ==
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
[2022-05-12 15:31] VITALS: BP 141/86
== END 2022-05-12 14:37 | disposition home or self-care (01) ==
LOC: ED 12:43
DX: M79.601 Pain in right arm (principal); Z48.00 Encounter for change or removal of nonsurgical wound dressing
CPT/HCPCS: 99282